=== PATIENT | male | born 1980 | race Caucasian/White ===

== ENCOUNTER 2023-10-14 05:07 | Emergency (ER) | payer SELFPAY ==
[2023-10-14 05:47] VITALS: BMI 26.2
[2023-10-14] MEDS: NSS 1000 IV (05:47)
[2023-10-14] MEDS: ZOFRAN 4 MG IV (05:47)
[2023-10-14 05:48] VITALS: BP 149/99
[2023-10-14 05:57] LABS: % Basophils 0.5 % (0-2); % Eosinophils 1.4 % (0-6); % Immature Granulocytes 0.3 % (0-0.5); % Lymphocytes 18.7 % (20.5-51.1); % Monocytes 7.7 % (1.7-9.3); % Neutrophils 71.4 % (42.2-75.2); Absolute Eosinophils 0.1 10^3/uL (0-0.7); Absolute Lymphocytes 1.5 10^3/uL (1.2-3.4); Absolute Monocytes 0.6 10^3/uL (0.1-0.6); Absolute Neutrophils 5.6 10^3/uL (1.4-6.5); Hemoglobin 15.8 g/dL (13.0-18.0); Mean Corp Hgb Conc. 35.9 g/dL (33.0-37.0); Mean Corpuscular Hgb 29.9 pg (27.0-31.0); Mean Corpuscular Volume 83.2 fL (80.0-94.0); Mean Platelet Volume 11.4 fL (7.4-10.4); Nucleated Red Blood Cells % 0 % (-); Platelet Count 164 10^3/uL (130-400); Red Blood Cell Count 5.29 10^6/uL (4.70-6.10); Red Cell Dist. Width 12.3 % (11.5-14.5); White Blood Cell Count 7.8 10^3/uL (4.8-10.8)
[2023-10-14 06:11] LABS: ALT (SGPT) 62 U/L (0-50); AST (SGOT) 34 U/L (17-59); Albumin 4.9 g/dl (3.5-5.0); Alkaline Phosphatase 62 U/L (38-126); Blood Urea Nitrogen 29 mg/dl (9-20); Calcium 10.2 mg/dl (8.4-10.2); Carbon Dioxide 25 mmol/L (22-30); Chloride 103 mmol/L (98-107); Estimated Creatinine Clearance 107 ml/min; Glucose 115 mg/dl (70-99); Lipase 103 U/L (23-300); Potassium 3.6 mmol/L (3.5-5.1); Sodium 137 mmol/L (135-145); Total Bilirubin 0.8 mg/dl (0.2-1.3); Total Protein 7.3 g/dl (6.3-8.2); eGFR > 60.00
[2023-10-14 06:12] LABS: Lactic Acid 2.1 mmol/L (0.7-2.0)
[2023-10-14 06:22] LABS: Troponin I < 0.012 ng/ml
--- NOTE | 2023-10-14 06:27 | ED.GENMED ---
History of Present Illness
General
Chief Complaint: Abdominal Pain
Time Seen by Provider: 10/14/23 06:27
Travel History
Have you had any contact with someone who has COVID-19?: No
Do you have any symptoms of coronavirus? Fever > 100 degrees, chills, cough, shortness of breath, sore throat, loss of taste or smell, muscle aches, or headache?: No
History of Present Illness
History of Present Illness:
HPI: The patient presents due to severe upper abdominal pain. This been ongoing intermittently for the past week. He has tried intermittent use of pantoprazole. The pain has been increasingly worsening and now has been associated with vomiting
over the past 5 hours. He denies any other symptoms.
EXAM:
GENERAL: The patient appears uncommon
HEENT: Moist oral mucosa
CARDIOVASCULAR: No murmurs, normal heart rate, regular rhythm, No chest wall tenderness
PULMONARY: No respiratory distress, breath sounds are clear and equal
ABDOMEN: Soft with no peritoneal signs, moderate upper abdominal tenderness
NEUROLOGIC: Excellent strength all extremities, no coordination deficits
PSYCHIATRIC: Appropriate mental status, normal insight and judgement
EXTREMITIES: Nontender, no edema, moves all extremities equally
SKIN: No rash, no lesions
TIME OF INITIAL ENCOUNTER: 6:45 AM
NUMBER AND COMPLEXITY OF PROBLEMS ADDRESSED AT THE ENCOUNTER
� Chronic conditions affecting care: Has had kidney stones
� Acute Exacerbation and/or Progression of Chronic Illness: This is an acute problem
� Differential Diagnosis includes: GERD, gastric outlet obstruction, internal hernia, biliary colic, colic
AMOUNT AND/OR COMPLEXITY OF DATA TO BE REVIEWED AND ANALYZED
� I performed an independent evaluation of and my interpretation is:
EKG: Suspect sinus, rate of 95, baseline artifact, no old to compare
CT: CAT scan of the abdomen pelvis is unremarkable, notified patient of the indeterminant lesion at the left kidney
X-rays:
Laboratory Studies: CBC normal, chemistries unremarkable except lactic acid was elevated 2.1, ALT 62, troponin negative, lipase normal
Other:
� Review of other/old records:
� Clinical information was obtained by an independent historian: I spoke to the at bedside
� Prescriptions/Medications Considered but not given:
� Further testing considered but not performed:
RISK OF COMPLICATIONS AND/OR MORBIDITY OR MORTALITY OF PATIENT MANAGEMENT
� Social determinants of health affecting care:
� Discussion with other providers:
� Escalation of care including admission/observation vs risk of discharge considered: The patient appears very uncomfortable. Will give narcotic analgesia and also check CT imaging. Minimal lactic acid elevation however vital
signs not consistent with sepsis. CT imaging unremarkable. On reassessment the patient appears comfortable at 8 AM. Recommend PPI. I notified patient of the abnormality of left kidney.
Phy Exam
Physical Exam
Physical Exam:
See HPI
Course
Orders/Labs/Results
Orders:
Orders
10/14/23 05:08
Electrocardiogram (*1) Urgent
Reason for Study: Chest Pain
EKG- Treatment ONCE
10/14/23 05:37
IV Insert/Care/Rem.- Treatment PRN
10/14/23 05:38
Ondansetron Injectable [Zofran] 4 mg IV NOW STA
10/14/23 05:39
0.9% Sodium Chloride 1000 ml [Nss] 1,000 ml IV BOLUS
10/14/23 05:41
Complete Blood Count/With Diff Urgent
Comprehensive Metabolic Panel Urgent
Lactic Acid Urgent
Lipase Urgent
Troponin I Urgent
10/14/23 06:40
Famotidine [Pepcid] 20 mg IV NOW STA
HYDROmorphone [Dilaudid] 1 mg IV NOW STA
10/14/23 06:41
CT Abd/pelvis W Iv Cont Urgent
Comment:
Reason For Exam: severe upper abd pain vomiting
Abnormal Lab Results
10/14/23
05:41
MPV 11.4 H fL
(7.4-10.4)
Lymphocytes % 18.7 L %
(20.5-51.1)
BUN 29 H mg/dl
(9-20)
Glucose 115 H mg/dl
(70-99)
Lactic Acid 2.1 H mmol/L
(0.7-2.0)
ALT 62 H U/L
(0-50)
10/14/23 05:41
10/14/23 05:41
Vital Signs
Initial and Last Documented VS:
Initial Vital Signs
Pulse Resp Pulse Ox
74 28 98
10/14/23 05:09 10/14/23 05:09 10/14/23 05:09
Last Documented Vital Signs
Temp Pulse Resp BP Pulse Ox
98.0 F 74 28 149/99 98
10/14/23 05:48 10/14/23 05:09 10/14/23 05:09 10/14/23 05:48 10/14/23 05:09
*Critical Care Note
Total Time (30-74mins, 75-104mins- exclusive of procedures): Not Applicable
ED Attending Note
-
Portions of this chart may have been created with voice recognition software.� Occasional wrong word or��sound alike� substitutions may have occurred due to the inherent limitations of voice recognition software.
Discharge Plan
Departure
Referrals:
NONE,* [Family Provider] -
Interventions
Interventions:
*Risk Screen - Suicide Last Done: 10/14/23 05:09
*General Assessment Last Done: 10/14/23 05:48
*Neglect/Abuse Screening Last Done: 10/14/23 05:09
ED- Fall Risk Assessment Last Done: 10/14/23 06:13
*ED COVID-19 Vaccine History Last Done: 10/14/23 07:28
GE-Uzfzin-Aewkgywbel Assessment Last Done: 10/14/23 06:13
Discharge Date and Time
Print Language: [id number]
[2023-10-14 07:20] VITALS: BP 107/92
[2023-10-14] MEDS: DILAUDID 1 MG IV (07:22)
[2023-10-14] MEDS: PEPCID 20 MG IV (07:22)
[2023-10-14 08:00] VITALS: BP 106/75
[2023-10-14 08:53] VITALS: BP 106/74
== END 2023-10-14 09:03 | disposition home or self-care (01) ==
LOC: EMR 05:07
PROVIDERS: Emergency Medicine; EMERGENCY PHYSICIAN Emergency Medicine
DX: R10.10 Upper abdominal pain, unspecified (principal); R11.10 Vomiting, unspecified; R10.819 Abdominal tenderness, unspecified site
CPT/HCPCS: 99285; 96374; 96375 ×2; 96361; 74177; 80053; 83605; 83690; 84484; 85025; 93005; Q9967